=== PATIENT | female | born 1970 | race Caucasian/White ===

== ENCOUNTER 2020-09-06 06:02 | Emergency (ER) | payer OTHER ==
[~2020-09-06] VITALS: Ht 172.7 cm; Wt 104.3 kg
[2020-09-06 07:17] VITALS: BP 00/00
--- NOTE | 2020-09-06 11:15 | EKG ---
[place] [address] ELECTROCARDIOGRAM REPORT Name: SUZANNA CARBONE Room: [facility]#: [id number] Admission: 09/06/20 Attend Phys: Discharge: 09/06/20 Date of : 70 Date of Service: 09/06/20 0634 Report #: [id number] THIS REPORT FOR: //name// [facility] ED Test Date: 2020-09-06 Test Time: 06:34:43 Pat Name: SUZANNA CARBONE Department: Room: Gender: F Executive Asst: : 1970 Requested By: Karol Reynoso Order Number: [id number] Reading MD: Jass Christy Measurements Intervals [place] Rate: 140 P: [place]: QRS: 52 QRSD: 164 T: QT: QTc: 0 Interpretive Statements agonal rhythm noted Nonspecific intraventricular conduction delay ST depr, consider ischemia, anterolateral lds Baseline wander in lead(s) II,III,aVL,aVF No previous ECG available for comparison Electronically Signed On 09-06-2020 11:15:40 THERAPEUTIC STRATEGY LEAD by Jass Christy [email or web address] <ELECTRONICALLY SIGNED> By: Jass Christy MD, [facility] 09/06/20 1115 0634 0634 Jass Christy MD, [facility] /EPI
--- NOTE | 2020-09-06 11:16 | EKG ---
[place] [address] ELECTROCARDIOGRAM REPORT Name: SUZANNA CARBONE Room: [facility]#: [id number] Admission: 09/06/20 Attend Phys: Discharge: 09/06/20 Date of : 70 Date of Service: 09/06/20 0636 Report #: [id number] THIS REPORT FOR: //name// [facility] ED Test Date: 2020-09-06 Test Time: 06:36:43 Pat Name: SUZANNA CARBONE Department: Room: Gender: F Production Engineer Track: : 1970 Requested By: Karol Reynoso Order Number: [id number] George MD: Jass Chirsty Measurements Intervals [place] Rate: 84 P: 145 AL: 172 QRS: 221 QRSD: 152 T: QT: QTc: 0 Interpretive Statements agonal rhythm noted Lead(s) aVL,V2 were not used for morphology analysis Compared to ECG 09/06/2020 06:34:43 rate has slowed Electronically Signed On 09-06-2020 11:16:33 METAL FRAMER by Jass Christy [email or web address] <ELECTRONICALLY SIGNED> By: Jass Christy MD, FAC 09/06/20 1116 0636 0636 Jass Christy MD, [facility] /EPI
--- NOTE | 2020-09-06 11:18 | EKG ---
[place] [address] ELECTROCARDIOGRAM REPORT Name: SUZANNA CARBONE Room: [facility]#: [id number] Admission: 09/06/20 Attend Phys: Discharge: 09/06/20 Date of : 70 Date of Service: 09/06/20 0659 Report #: [id number] THIS REPORT FOR: //name// [facility] ED Test Date: 2020-09-06 Test Time: 06:59:42 Pat Name: SUZANNA CARBONE Department: Room: Gender: Automatic Fabric Cutter: : 1970 Requested By: Karol Reynoso Order Number: [id number] George MD: Jass Christy Measurements Intervals [place] Rate: 92 P: 76 [place]: 169 QRS: 234 QRSD: 86 T: -87 QT: 387 QTc: 479 Interpretive Statements Sinus rhythm low voltage LBBB Compared to ECG 09/06/2020 06:36:43 rate has increased Electronically Signed On 09-06-2020 11:18:16 TUBE WINDER HAND by Jass Christy [email or web address] <ELECTRONICALLY SIGNED> By: Jass Christy MD, [facility] 09/06/20 1118 0659 0659 Jass Christy MD, [facility] /EPI
== END 2020-09-06 07:17 ==
LOC: EDBD 06:02 → M.ERS 06:02
DX: I46.9 Cardiac arrest, cause unspecified (principal); Z20.822 Contact with and (suspected) exposure to COVID-19